=== PATIENT | male | born 1970 ===

== ENCOUNTER 2020-05-05 03:16 | Inpatient (IN) | payer OTHER ==
[2020-05-05 04:58] VITALS: BMI 31.3
[2020-05-05] MEDS ORDERED: Ondansetron ODT 4 MG TAB PO PRN (05:09)
[2020-05-05] MEDS ORDERED: Guaifenesin DM 100-10/5 ML UDCUP PO PRN (05:09)
[2020-05-05] MEDS ORDERED: Acetaminophen 650 MG Suppository PR PRN (05:09)
[2020-05-05] MEDS ORDERED: Ondansetron PF 4 MG/2 ML Vial IVP PRN (05:09)
[2020-05-05] MEDS ORDERED: HYDROcodone/Acetaminophen 5/325 mg Tablet PO PRN ×2 (05:09)
--- NOTE | 2020-05-05 05:30 | PDOC.HHP ---
Hospitalist HPI - History of Present Illness fever chills difficulty speaking History of Present Illness: Case of an 49 y/o male with pmhx of htn who is a [employer] inmate, that comes transfered from [place] [facility] due to sepsis pneumonia covid and slur speech. patient refers he was on his usual state of health until 3 days ago when he started with fever chills generalise weakness malaise dyspnea and difficulty pronouncing words. he was taken to [place] [facility] where he was dx with covid and pneumonia, had a negative head CT and was sent back to [facility] with azithromycin PO. patient continued to deteriorate for which he was again was taken to [facility] ED who found the patient on severe sepsis with renal failure and was sent to this institution for further evaluation and management. Hospitalist ROS - Review of Systems All other systems reviewed; all pertinent +/- noted in HPI/Subj Hospitalist History - Past Medical History Cardiac: reports: HTN - Past Surgical History Past Surgical History: reports: no pertinent history - Family History Family History: reports: no pertinent history - Social History Smoking Status: Former smoker Alcohol: reports: None Drugs: reports: none Activity level: independent ambulation - Exam General Appearance: NAD, awake alert Eye: PERRL, anicteric sclera ENT: normocephalic atraumatic, no oropharyngeal lesions Neck: supple, symmetric, no JVD, no thyromegaly Heart: RRR, no murmur, no gallops Respiratory: CTAB, no wheezes, no rales, tachypneic Gastrointestinal: soft, non-tender, non-distended Extremities: no cyanosis, no clubbing, no edema Skin: normal turgor, no lesions, no rashes Neurological: cranial nerve grossly intact, normal sensation to touch, no weakness Musculoskeletal: normal tone, normal strength Psychiatric: normal affect, normal behavior, A&O x 3 Hospitalist Results - Radiology Interpretation Chest x-ray Status: report reviewed by me Additional Comment: ANGELIA pneumonia Hospitalist H&P A/P - Problem (1) Severe sepsis Code(s): A41.9 - SEPSIS, UNSPECIFIED ORGANISM; R65.20 - SEVERE SEPSIS WITHOUT SEPTIC SHOCK Status: Acute (2) Pneumonia Code(s): J18.9 - PNEUMONIA, UNSPECIFIED ORGANISM Status: Acute (3) Renal failure Status: Acute (4) TIA (transient ischemic attack) Code(s): G45.9 - TRANSIENT CEREBRAL ISCHEMIC ATTACK, UNSPECIFIED Status: Acute (5) HTN (hypertension) Code(s): I10 - ESSENTIAL (PRIMARY) HYPERTENSION Status: Acute (6) Hyponatremia Code(s): E87.1 - HYPO-OSMOLALITY AND HYPONATREMIA Status: Acute - Plan Plan: severe sepsis / pnuemonia - elevated wbc 13k with tachycardia and fever, with a cxr with LLL pneumonia and renal failure - on rocephin and azithromycin - f/u blood cultures and sputum cultures. abx started before transfer, ours cultures will have a lower sensitivity - LA 1.2 - ivfs given covid 19+ - tested positive - isolation protocol started - dexamethasone 6mg iv daily renal failure - labs from two occasions from [facility] seen. from 1.2 to 3 creatinine - likely pre renal - will get renal u/s - u/a to examined sedimentation - ivfs 1x kg - f/u bmp hyponatremia - likely hypoosmolar hypovolemic - started on ivfs - initial evaluation at [facility] 127 improved w hydration to 131 -f/u bmps htn - holding hnt medication in the setting of sepsis and renal failure tia -pts refers slur speach and difficulty speaking words - head ct negative - started on secondary prevention w statin and asa - f/u mri carotid doppler and 2d echo - evaluation on modifiable risk factors with lipid panel and a1c
[2020-05-05] MEDS ORDERED: cefTRIAXone\\ROCEPHIN 1 GM in Sodium Chloride 0.9% 100 ML IVPB SCH (06:00)
[2020-05-05] MEDS: Sodium Chloride 0.9% 1,000 ML IV SCH ×2 (06:12→20:39)
[2020-05-05] MEDS ORDERED: Azithromycin 500 MG in Sodium Chloride 0.9% 250 ML 250 ML IVPB SCH (06:30)
[2020-05-05] MEDS: Dexamethasone 4 mg/ml Vial SLOW IVP SCH (08:45)
[2020-05-05] MEDS: Enoxaparin Sodium 30 MG/0.3 ML SYRINGE SC SCH (08:45)
[2020-05-05] MEDS: Aspirin 81 mg Enteric Coated Tablet PO SCH (08:45)
--- NOTE | 2020-05-05 08:57 | CT ---
PRELIMINARY REPORT/[facility]/EMERGENCY AFTER HOURS PROCEDURE EXAM: CT Head Without Intravenous Contrast. CLINICAL HISTORY: AMS TECHNIQUE: Axial computed tomography images of the head/brain without intravenous contrast. COMPARISON: None provided. FINDINGS: BRAIN: No acute intraparenchymal hemorrhage. No mass lesion. No CT evidence for acute territorial infarct. N o midline shift or extra-axial collection. VENTRICLES: No hydrocephalus. ORBITS: The orbits are unremarkable. SINUSES AND MASTOIDS: The paranasal sinuses and mastoid air cells are clear. SOFT TISSUES: No significant facial or scalp soft tissue swelling evident. No radiopaque foreign body is seen. BONES: No acute skull fracture. IMPRESSION: No acute intracranial abnormality. ELECTRONICALLY SIGNED BY: Ashley Nogueira MD May 05, 2020 4:49:26 AM CDT This report is intended for review by the ordering physician only, in accordance of law. If you recei ve this report in error, please call [facility] at [phone]. FINAL REPORT EMERGENT AFTER HOURS CT BRAIN: IMPRESSION: Agree with the preliminary interpretation. No evidence for intracranial hemorrhage or mass effect. POS: PRISCILLA
--- NOTE | 2020-05-05 12:20 | CON ---
NEUROLOGY CONSULTATION DATE OF CONSULTATION: 05/05/2020 REASON FOR CONSULTATION: Problem with speech, rule out CVA. HISTORY OF PRESENT ILLNESS: Mr. Maria Del Carmen Cancino is a 49-year-old male with medical history significant for hypertension and nicotine abuse, who was transferred from [facility] due to COVID pneumonia and slurred speech. Per the patient, the patient is a retirement inmate and he was in usual health 3 days ago when he started having fever, chills, generalized weakness, and difficulty talking. He was taken to the [facility] and was diagnosed with COVID pneumonia, and chest x-ray was done, which was negative, but then he continued to have problems with speech and transferred here for further evaluation. The patient denies any focal weakness, focal paresthesias, nausea, vomiting, headache, chest pain, abdominal pain, loss of vision, loss of consciousness,vertigo associated with speech issues. REVIEW OF SYSTEMS: All 14 systems were reviewed and were negative except the pertinent positives and negatives mentioned in the HPI. PAST MEDICAL HISTORY: Hypertension. PAST SURGICAL HISTORY: None. FAMILY HISTORY: No family history of stroke. SOCIAL HISTORY: He is a former smoker. He denies alcohol or illegal drug use. - Objective Vital Signs & Weight: Vital Signs (12 hours) Temp Pulse Resp BP Pulse Ox 05/05/20 08:00 96 05/05/20 03:45 98.0 F 82 25 H 163/106 H 97 Weight Weight 212 lb 3.2 oz Active Medications Generic Name Dose Route Start Last Admin Trade Name Freq PRN Reason Stop Dose Admin Aspirin 162 mg 05/05/20 09:00 05/05/20 08:45 Ecotrin PO 162 mg DAILY IWONA Administration Dexamethasone 6 mg 05/05/20 09:00 05/05/20 08:45 Decadron SLOW IVP 6 mg DAILY IWONA Administration Enoxaparin Sodium 30 mg 05/05/20 09:00 05/05/20 08:45 Lovenox SC 30 mg 0900 IWONA Administration Azithromycin 500 mg/ Sodium 250 mls @ 250 mls/hr 05/05/20 06:30 05/05/20 08: 45 Chloride IVPB 250 mls 0630 IWONA Administration Ceftriaxone Sodium 1 gm/ 100 mls @ 200 mls/hr 05/05/20 06:00 05/05/20 06:12 Sodium Chloride IVPB 100 mls 0600 IWONA Administration Sodium Chloride 1,000 mls @ 100 mls/hr 05/05/20 05:15 05/05/20 06:12 Normal Saline 0.9% IV 1,000 mls .Q10H IWONA Administration PHYSICAL EXAMINATION: CVS: Regular rate and rhythm. CHEST: Clear. ABDOMEN: Soft. NECK: No carotid bruit. NEUROLOGIC: Mental status; the patient is alert and oriented to person, place, and time. Speech is slurred. Follows commands appropriately. Motor; muscle tone and bulk are normal. Moving all 4 extremities equally and symmetrically. Sensory intact. Cerebellar; finger-nose testing intact Gait deferred due to the patient's safety reasons. Cranial nerves 2 through 12 intact except 10th, dysarthria. LABORATORY DATA: Data reviewed. I reviewed the CT and the chest x-ray, which were unremarkable. ASSESSMENT AND PLAN: Mr. Maria Del Carmen Cancino is a 49-year-old male, who was consulted for an episode of slurred speech to rule out stroke. He does have severe sepsis and COVID pneumonia. I recommend MRI of the brain to rule out acute intracranial pathology, 2D echo to rule out cardioembolic source, telemetry to rule out arrhythmias. Continue aspirin and statin for secondary stroke prevention. Continue home medications. Continue medical management of COVID pneumonia per primary team. Continue medical management per primary team for other issues. Further recommendations depend on the neuro checks every 4 hours. PT/OT/speech. Further recommendations depend on the results of the testing. We will continue to follow. Thank you for the consult. Job ID: [id number] MTDD
--- NOTE | 2020-05-05 12:24 | PDOC.HOSPP ---
- Subjective Encounter Date: 05/05/20 Encounter Time: 09:40 Subjective: pt being seen this am by admitting physician. I have reviewed the meds, labs etc..a nd did not see the pt. - Objective Vital Signs & Weight: Vital Signs (12 hours) Temp Pulse Resp BP Pulse Ox 05/05/20 08:00 96 05/05/20 03:45 98.0 F 82 25 H 163/106 H 97 Weight Weight 212 lb 3.2 oz Hospitalist ROS - Medication Medications: Active Medications Generic Name Dose Route Start Last Admin Trade Name Freq PRN Reason Stop Dose Admin Aspirin 162 mg 05/05/20 09:00 05/05/20 08:45 Ecotrin PO 162 mg DAILY IWONA Administration Dexamethasone 6 mg 05/05/20 09:00 05/05/20 08:45 Decadron SLOW IVP 6 mg DAILY IWONA Administration Enoxaparin Sodium 30 mg 05/05/20 09:00 05/05/20 08:45 Lovenox SC 30 mg 0900 IWONA Administration Azithromycin 500 mg/ Sodium 250 mls @ 250 mls/hr 05/05/20 06:30 05/05/20 08: 45 Chloride IVPB 250 mls 0630 IWONA Administration Ceftriaxone Sodium 1 gm/ 100 mls @ 200 mls/hr 05/05/20 06:00 05/05/20 06:12 Sodium Chloride IVPB 100 mls 0600 IWONA Administration Sodium Chloride 1,000 mls @ 100 mls/hr 05/05/20 05:15 05/05/20 06:12 Normal Saline 0.9% IV 1,000 mls .Q10H IWONA Administration Hosp A/P - Plan note edited to reflect today's plan Severe sepsis Code(s): A41.9 - SEPSIS, UNSPECIFIED ORGANISM; R65.20 - SEVERE SEPSIS WITHOUT SEPTIC SHOCK Status: Acute (2) Pneumonia Code(s): J18.9 - PNEUMONIA, UNSPECIFIED ORGANISM Status: Acute (3) Renal failure Status: Acute (4) TIA (transient ischemic attack) Code(s): G45.9 - TRANSIENT CEREBRAL ISCHEMIC ATTACK, UNSPECIFIED Status: Acute (5) HTN (hypertension) Code(s): I10 - ESSENTIAL (PRIMARY) HYPERTENSION Status: Acute (6) Hyponatremia Code(s): E87.1 - HYPO-OSMOLALITY AND HYPONATREMIA Status: Acute - Plan Plan: severe sepsis / pnuemonia - on rocephin and azithromycin - f/u blood cultures and sputum cultures. - covid 19+ - tested positive - isolation protocol started - dexamethasone 6mg iv daily renal failure - labs from two occasions from [facility] seen. from 1.2 to 3 creatinine - likely pre renal - will get renal u/s - u/a to examined sedimentation - ivfs 1x kg - f/u bmp hyponatremia - likely hypoosmolar hypovolemic - started on ivfs - initial evaluation at [facility] 127 improved w hydration to 131 -f/u bmps htn - holding hnt medication in the setting of sepsis and renal failure tia -pts refers slur speach and difficulty speaking words - head ct negative - started on secondary prevention w statin and asa - f/u mri carotid doppler and 2d echo - evaluation on modifiable risk factors with lipid panel and a1c pt being seen this am by admitting physician. I have reviewed the meds, labs etc..a nd did not see the pt.
[2020-05-05 12:47] LABS: Bacteria/HPF None Seen HPF (None Seen); Bilirubin Negative (Negative); Blood, Urine 2+ (Negative); Clarity Turbid (Clear); Glucose, Urine (Dipstick) Normal (Negative); Ketone, Urine Trace mg/dL (Negative); Leukocyte Negative Leu/uL (Negative); Nitrite Negative (Negative); Protein, Urine (Dipstick) 100 mg/dL (Neg-Trace); RBC/HPF 0-3 HPF (0-3); Specific Gravity, Urine 1.023 (1.002-1.036); Squamous Epithelial 0-3 HPF (0-3); Urobilinogen Normal mg/dL (Less than 2)
[2020-05-05 12:49] LABS: Urine Culture Reflex Yes Yes
[2020-05-05] MEDS: Atorvastatin Calcium 40 MG TAB PO SCH (20:39)
[2020-05-05] MEDS: Acetaminophen 325 MG TAB PO PRN (20:48)
[2020-05-06 04:50] LABS: Hemoglobin A1c 4.9 % (4.0-6.0)
[2020-05-06 05:08] LABS: ALT (SGPT) 103 U/L (8-55); AST (SGOT) 192 U/L (5-34); Albumin 3.4 g/dL (3.5-5.0); Alkaline Phosphatase 46 U/L (40-110); Anion Gap 12 mmol/L (10-20); BUN (Urea Nitrogen) 34 mg/dL (8.9-20.6); Bilirubin, Total 1.3 mg/dL (0.2-1.2); Calc. Creatinine Clearance 79 mL/min (70-130); Calcium 8.4 mg/dL (7.8-10.44); Carbon Dioxide 24 mmol/L (22-29); Cardiac Risk 5.9 (Less than 4.5); Chloride 105 mmol/L (98-107); Cholesterol 130 mg/dl (< 200 Desired); Estimated GFR-MDRD 49; Globulin 3.3 g/dL (2.4-3.5); Glucose 141 mg/dL (70-105); HDL Cholesterol 22 mg/dL (>60 Neg Risk); LDL Cholesterol, Calculated 76 mg/dL; Potassium 4.1 mmol/L (3.5-5.1); Protein, Total 6.7 g/dL (6.0-8.3); Sodium 137 mmol/L (136-145); Triglycerides 161 mg/dL (Less than 150)
[2020-05-06 05:13] LABS: Band 22 % (5-11); Eosinophils 1 % (0-10); Lymphocytes 6 % (21-51); MDiff Complete? YES; Mean Corpuscular Hemoglobin 30.4 pg (27.0-31.0); Mean Corpuscular Volume 95.2 fL (78.0-98.0); Mean Platelet Volume 9.2 fL (7.4-10.4); Monocytes 9 % (0-10); Neutrophil 62 % (42-75); Platelet Count 178 thou/uL (130-400); Platelet Morphology Comment Appears Adequate; Red Blood Cell (RBC) Count 3.61 mill/uL (4.70-6.10); White Blood Cell (WBC) Count 11.4 thou/uL (4.8-10.8)
[2020-05-06] MEDS: Sodium Chloride 0.9% 1,000 ML IV SCH ×2 (05:57→15:37)
[2020-05-06] MEDS: Aspirin 81 mg Enteric Coated Tablet PO SCH (08:02)
[2020-05-06] MEDS: Dexamethasone 4 mg/ml Vial SLOW IVP SCH (08:03)
[2020-05-06] MEDS: Enoxaparin Sodium 30 MG/0.3 ML SYRINGE SC SCH (08:06)
[2020-05-06] MEDS ORDERED: cefTRIAXone\\ROCEPHIN 1 GM in Sodium Chloride 0.9% 100 ML IVPB SCH (09:00)
[2020-05-06] MEDS ORDERED: Azithromycin 500 MG in Sodium Chloride 0.9% 250 ML 250 ML IVPB SCH (09:00)
[2020-05-06 11:02] LABS: Hemoglobin 11.5 g/dL (14.0-18.0); Mean Corpuscular HGB CONC 33.9 g/dL (32.0-36.0); Mean Corpuscular Hemoglobin 32.3 pg (27.0-31.0); Mean Corpuscular Volume 95.2 fL (78.0-98.0); Mean Platelet Volume 9.1 fL (7.4-10.4); Platelet Count 178 thou/uL (130-400); Red Blood Cell (RBC) Count 3.56 mill/uL (4.70-6.10); White Blood Cell (WBC) Count 12.3 thou/uL (4.8-10.8)
[2020-05-06 11:18] LABS: ALT (SGPT) 106 U/L (8-55); AST (SGOT) 182 U/L (5-34); Albumin 3.4 g/dL (3.5-5.0); Alkaline Phosphatase 52 U/L (40-110); Anion Gap 11 mmol/L (10-20); BUN (Urea Nitrogen) 33 mg/dL (8.9-20.6); Bilirubin, Total 1.2 mg/dL (0.2-1.2); Calc. Creatinine Clearance 88 mL/min (70-130); Calcium 8.6 mg/dL (7.8-10.44); Carbon Dioxide 24 mmol/L (22-29); Chloride 106 mmol/L (98-107); Estimated GFR-MDRD 55; Globulin 3.2 g/dL (2.4-3.5); Glucose 158 mg/dL (70-105); Protein, Total 6.6 g/dL (6.0-8.3); Sodium 137 mmol/L (136-145)
--- NOTE | 2020-05-06 17:06 | PDOC.HOSPP ---
- Subjective Encounter Date: 05/06/20 Encounter Time: 15:00 Subjective: The patient states he feels okay. He has decreased appetite still, not eating his full meals. He has mild dry cough, no chest pain. He got up with PT today He seems slightly cognitively slow. NIH stroke scale one per nurse for dysarthria - Objective Vital Signs & Weight: Vital Signs (12 hours) Temp Pulse Resp BP BP Pulse Ox 05/06/20 16:00 97.7 F 73 24 H 152/98 H 94 L 05/06/20 11:00 98.4 F 68 26 H 141/100 H 94 L 05/06/20 08:00 98.2 F 86 16 136/95 H 94 L Weight Weight 212 lb 3.2 oz I&O: 05/05/20 05/06/20 05/07/20 06:59 06:59 06:59 Intake Total 2400 480 Balance 2400 480 Result Diagrams: 05/06/20 10:40 05/06/20 10:40 Hospitalist ROS - Review of Systems Constitutional: reports: chills (had it previously). denies: fever - Medication Medications: Active Medications Generic Name Dose Route Start Last Admin Trade Name Freq PRN Reason Stop Dose Admin Acetaminophen 650 mg 05/05/20 05:09 05/05/20 20:48 Tylenol PO 650 mg Q4H PRN Administration Headache/Fever/Mild Pain (1-3) Aspirin 162 mg 05/05/20 09:00 05/06/20 08:02 Ecotrin PO 162 mg DAILY IWONA Administration Atorvastatin Calcium 40 mg 05/05/20 21:00 05/05/20 20:39 Lipitor PO 40 mg HS IWONA Administration Enoxaparin Sodium 30 mg 05/05/20 09:00 05/06/20 08:06 Lovenox SC 30 mg 0900 IWONA Administration - Exam General Appearance: NAD, awake alert Eye: PERRL, anicteric sclera ENT: normocephalic atraumatic, no oropharyngeal lesions Neck: no JVD Heart: RRR, no murmur, no gallops, no rubs Respiratory: CTAB, no wheezes, no rales, no ronchi Gastrointestinal: soft, non-tender, non-distended, normal bowel sounds Extremities: no cyanosis, no clubbing, no edema Skin: normal turgor, no lesions, no rashes Hosp A/P - Plan CT brain: normal This is 49 year old male who presented with fevers, chills, weakness, tested positive for COVID COVID + - on ceftriaxone and azithromycin. Will switch to oral - on dexamethasone. Switch to oral - he is on room air - will transfer to [facility] bed #Dysarthria #Acute encephalopathy - no focal deficits. CT head normal - will cancel rest of stroke workup since COVID positive - continue PT/OT/speech - UA 4-6 WBC, pending urine culture - check chest X ray Transaminitis - AST 182, ALT elevated. Will continue to trend Possible YOLANDA - creatinine improved to 1.37, will continue to monitor. Unknown what patient' s baseline is - encourage oral intake Dispo: possible d/c to [facility] bed when available
--- NOTE | 2020-05-06 19:10 | RAD ---
EXAM: CHEST ONE VIEW HISTORY: Covid positive COMPARISON: None FINDINGS: The cardiac silhouette and pulmonary vasculature is within normal limits. There is elevation of the r ight hemidiaphragm with minimal atelectasis right lung base. The medial left lung base is obscured due to cardiac silhouette and technique of the exam. Parenchymal opacity left lung base would be diff icult to entirely exclude. No consolidation is seen throughout the remainder of the lungs. Calcified granuloma is seen in the left midlung zone. The osseous structures are intact. IMPRESSION: 1 Limited evaluation retrocardiac region left lung base. There is otherwise no consolidation seen wit hin the lungs. 2. Elevation right hemidiaphragm with atelectasis right lung base. 3. Chest radiographs exhibit low sensitivity for subtle groundglass opacities which can be seen with viral pneumonitis.
[2020-05-06] MEDS: Cefdinir 300 MG CAP PO SCH (19:39)
[2020-05-06] MEDS: Atorvastatin Calcium 40 MG TAB PO SCH (19:39)
[2020-05-06] MEDS: Artificial Tear Sol 15 ML BOT EA EYE PRN (23:03)
[2020-05-07] MEDS: Azithromycin 250 MG TAB PO SCH (09:24)
[2020-05-07] MEDS: Enoxaparin Sodium 30 MG/0.3 ML SYRINGE SC SCH (09:24)
[2020-05-07] MEDS: Dexamethasone 4 MG TAB PO SCH (09:24)
[2020-05-07] MEDS: Cefdinir 300 MG CAP PO SCH ×2 (09:24→19:40)
[2020-05-07] MEDS: Aspirin 81 mg Enteric Coated Tablet PO SCH (09:24)
--- NOTE | 2020-05-07 15:29 | PDOC.HOSPP ---
- Subjective Encounter Date: 05/07/20 Encounter Time: 13:00 Subjective: The patient is sitting up in bed. He is not eating much food. States he prefers to drink water instead. He denies loss of smell or taste. He has not ambulated much Awaiting [facility] bed - Objective Vital Signs & Weight: Vital Signs (12 hours) Temp Pulse Resp BP Pulse Ox 05/07/20 12:00 98.9 F 70 28 H 155/96 H 95 05/07/20 09:00 98.5 F 81 20 170/105 H 93 L 05/07/20 08:30 93 L 05/07/20 05:34 98.6 F 73 22 H 154/100 H 92 L Weight Weight 212 lb 3.2 oz I&O: 05/06/20 05/07/20 05/08/20 06:59 06:59 06:59 Intake Total 2400 480 Balance 2400 480 Result Diagrams: 05/06/20 10:40 05/06/20 10:40 Hospitalist ROS - Review of Systems Constitutional: denies: fever, chills - Medication Medications: Active Medications Generic Name Dose Route Start Last Admin Trade Name Freq PRN Reason Stop Dose Admin Acetaminophen 650 mg 05/05/20 05:09 05/05/20 20:48 Tylenol PO 650 mg Q4H PRN Administration Headache/Fever/Mild Pain (1-3) Artificial Tears 2 drop 05/06/20 21:44 05/06/20 23:03 Liquitears 15ml Bottle EA EYE 2 drop Q4H PRN Administration Dry Eyes Aspirin 162 mg 05/05/20 09:00 05/07/20 09:24 Ecotrin PO 162 mg DAILY IWONA Administration Atorvastatin Calcium 40 mg 05/05/20 21:00 05/06/20 19:39 Lipitor PO 40 mg HS IWONA Administration Azithromycin 250 mg 05/07/20 09:00 05/07/20 09:24 Zithromax PO 05/10/20 09:01 250 mg DAILY IWONA Administration Cefdinir 300 mg 05/06/20 21:00 05/07/20 09:24 Omnicef PO 300 mg BID IWONA Administration Dexamethasone 6 mg 05/07/20 09:00 05/07/20 09:24 Decadron PO 6 mg DAILY IWONA Administration Enoxaparin Sodium 30 mg 05/05/20 09:00 05/07/20 09:24 Lovenox SC 30 mg 0900 IWONA Administration Sodium Chloride 10 ml 05/05/20 05:09 05/06/20 19:39 Flush - Normal Saline IVF 10 ml PRN PRN Administration Saline Flush - Exam General Appearance: NAD, awake alert Eye: PERRL, anicteric sclera ENT: normocephalic atraumatic, no oropharyngeal lesions Neck: no JVD Heart: RRR, no murmur, no gallops, no rubs Respiratory: CTAB, no wheezes, no rales, no ronchi Gastrointestinal: soft, non-tender, non-distended, normal bowel sounds Extremities: no cyanosis, no clubbing, no edema Skin: normal turgor, no lesions, no rashes Neurological: cranial nerve grossly intact, normal sensation to touch, no weakness, no focal deficits, no new deficit Musculoskeletal: normal tone, normal strength, no muscle wasting Psychiatric: normal affect, normal behavior, A&O x 3, oriented to person Hosp A/P - Plan CT brain: normal This is 49 year old male who presented with fevers, chills, weakness, tested positive for COVID COVID + - on ceftriaxone and azithromycin. Switched to oral cefdinir and azithromycin . Recheck WBC - continue oral dexamethasone - he is on room air. ChestX ray unremarkable - will transfer to [facility] #Dysarthria #Acute encephalopathy - improving - no focal deficits. CT head normal. HE does have some mild cognitive impairment - rest of stroke workup not done since COVID positive - continue PT/OT/speech - UA 4-6 WBC, pending urine culture Transaminitis - AST 182, ALT elevated. Will continue to trend Possible YOLANDA - creatinine improved to 1.37 yesterday. Will repeat BMP today Dispo: possible d/c to [facility] when available
[2020-05-07 16:17] LABS: Hemoglobin 11.1 g/dL (14.0-18.0); Mean Corpuscular HGB CONC 33.3 g/dL (32.0-36.0); Mean Corpuscular Hemoglobin 31.8 pg (27.0-31.0); Mean Corpuscular Volume 95.5 fL (78.0-98.0); Mean Platelet Volume 8.8 fL (7.4-10.4); Platelet Count 223 thou/uL (130-400); RBC Distribution Width 11.9 % (11.5-14.5); Red Blood Cell (RBC) Count 3.48 mill/uL (4.70-6.10); White Blood Cell (WBC) Count 14.8 thou/uL (4.8-10.8)
[2020-05-07 16:39] LABS: Anion Gap 14 mmol/L (10-20); BUN (Urea Nitrogen) 33 mg/dL (8.9-20.6); Calc. Creatinine Clearance 98 mL/min (70-130); Calcium 8.7 mg/dL (7.8-10.44); Carbon Dioxide 23 mmol/L (22-29); Chloride 105 mmol/L (98-107); Estimated GFR-MDRD 62; Glucose 141 mg/dL (70-105); Potassium 3.8 mmol/L (3.5-5.1); Sodium 138 mmol/L (136-145)
[2020-05-07] MEDS: Atorvastatin Calcium 40 MG TAB PO SCH (19:40)
[2020-05-07] MEDS: hydrALAZINE 20 MG/ML VIAL SLOW IVP PRN (23:04)
[2020-05-07] MEDS: Acetaminophen 325 MG TAB PO PRN (23:38)
[2020-05-08] MEDS: hydrALAZINE 20 MG/ML VIAL SLOW IVP PRN (04:28)
[2020-05-08] MEDS: Acetaminophen 325 MG TAB PO PRN ×3 (04:29→20:38)
[2020-05-08 05:09] LABS: Hemoglobin 11.3 g/dL (14.0-18.0); Mean Corpuscular HGB CONC 32.5 g/dL (32.0-36.0); Mean Corpuscular Hemoglobin 31.3 pg (27.0-31.0); Mean Corpuscular Volume 96.5 fL (78.0-98.0); Mean Platelet Volume 8.6 fL (7.4-10.4); Platelet Count 256 thou/uL (130-400); Red Blood Cell (RBC) Count 3.62 mill/uL (4.70-6.10); White Blood Cell (WBC) Count 16.1 thou/uL (4.8-10.8)
[2020-05-08 05:36] LABS: Anion Gap 17 mmol/L (10-20); BUN (Urea Nitrogen) 28 mg/dL (8.9-20.6); Calc. Creatinine Clearance 100 mL/min (70-130); Calcium 8.9 mg/dL (7.8-10.44); Carbon Dioxide 19 mmol/L (22-29); Chloride 105 mmol/L (98-107); Estimated GFR-MDRD 64; Glucose 94 mg/dL (70-105); Potassium 3.9 mmol/L (3.5-5.1); Sodium 137 mmol/L (136-145)
[2020-05-08] MEDS ORDERED: Ibuprofen 600 MG TAB PO SCH (05:52)
[2020-05-08] MEDS: Dexamethasone 4 MG TAB PO SCH (08:00)
[2020-05-08] MEDS: Cefdinir 300 MG CAP PO SCH ×2 (08:00→20:23)
[2020-05-08] MEDS: Azithromycin 250 MG TAB PO SCH (08:00)
[2020-05-08] MEDS: Enoxaparin Sodium 30 MG/0.3 ML SYRINGE SC SCH (08:01)
[2020-05-08] MEDS: Aspirin 81 mg Enteric Coated Tablet PO SCH (08:01)
[2020-05-08] MEDS ORDERED: Amlodipine 5 MG TAB PO SCH (09:45)
--- NOTE | 2020-05-08 12:22 | RAD ---
EXAM: CHEST ONE VIEW HISTORY: Fever, Covid positive. COMPARISON: 05/06/2020 FINDINGS: Cardiac silhouette is magnified by projection. Again, there is suboptimal evaluation retrocardiac reg ion left lung base. Persistent elevation right hemidiaphragm with minimal volume loss right lung base is seen. Chest is overall stable compared to prior exam. IMPRESSION: Again, there is suboptimal evaluation of the left lung base. Chest is otherwise stable, and no defini tive opacities are seen within the lungs. However, chest radiographs exhibit low sensitivity for subtle groundglass opacities which can be seen with viral pneumonitis.
--- NOTE | 2020-05-08 15:00 | PDOC.HOSPP ---
- Subjective Encounter Date: 05/08/20 Encounter Time: 05:00 Subjective: THe patient had a fever this morning to 100.3. He denies chest pain/SOB/ cough. THe patient tried to eat more today, but did not like his eggs but he did eat the chocolate pudding - Objective Vital Signs & Weight: Vital Signs (12 hours) Temp Pulse Resp BP BP Pulse Ox 05/08/20 12:00 98.8 F 72 18 156/89 H 94 L 05/08/20 08:00 98.3 F 90 22 H 137/88 93 L 05/08/20 05:47 101.3 F H 05/08/20 04:28 97 05/08/20 04:19 103.1 F H 97 27 H 174/108 H 97 Weight Weight 212 lb 3.2 oz I&O: 05/07/20 05/08/20 05/09/20 06:59 06:59 06:59 Intake Total 480 Balance 480 Result Diagrams: 05/08/20 05:00 05/08/20 05:00 Hospitalist ROS - Review of Systems Constitutional: denies: fever, chills - Medication Medications: Active Medications Generic Name Dose Route Start Last Admin Trade Name Freq PRN Reason Stop Dose Admin Acetaminophen 650 mg 05/05/20 05:09 05/08/20 04:29 Tylenol PO 650 mg Q4H PRN Administration Headache/Fever/Mild Pain (1-3) Artificial Tears 2 drop 05/06/20 21:44 05/06/20 23:03 Liquitears 15ml Bottle EA EYE 2 drop Q4H PRN Administration Dry Eyes Aspirin 162 mg 05/05/20 09:00 05/08/20 08:01 Ecotrin PO 162 mg DAILY IWONA Administration Atorvastatin Calcium 40 mg 05/05/20 21:00 05/07/20 19:40 Lipitor PO 40 mg HS IWONA Administration Azithromycin 250 mg 05/07/20 09:00 05/08/20 08:00 Zithromax PO 05/10/20 09:01 250 mg DAILY IWONA Administration Cefdinir 300 mg 05/06/20 21:00 05/08/20 08:00 Omnicef PO 300 mg BID IWONA Administration Dexamethasone 6 mg 05/07/20 09:00 05/08/20 08:00 Decadron PO 6 mg DAILY IWONA Administration Enoxaparin Sodium 30 mg 05/05/20 09:00 05/08/20 08:01 Lovenox SC 30 mg 0900 IWONA Administration Hydralazine HCl 10 mg 05/07/20 22:52 05/08/20 04:28 Apresoline SLOW IVP 10 mg Q4H PRN Administration SBP > 180 or DBP > 105 Sodium Chloride 10 ml 05/05/20 05:09 05/07/20 19:40 Flush - Normal Saline IVF 10 ml PRN PRN Administration Saline Flush - Exam General Appearance: NAD, awake alert Eye: PERRL, anicteric sclera ENT: normocephalic atraumatic, no oropharyngeal lesions Neck: no JVD Heart: RRR, no murmur, no gallops, no rubs Respiratory: CTAB, no wheezes, no rales, no ronchi Gastrointestinal: soft, non-tender, non-distended, normal bowel sounds, no hepatomegaly Extremities: no cyanosis, no clubbing, no edema Skin: normal turgor, no lesions, no rashes Hosp A/P - Plan CT brain: normal This is 49 year old male who presented with fevers, chills, weakness, tested positive for COVID COVID + - on ceftriaxone and azithromycin. Switched to oral cefdinir and azithromycin . Had mild temp 100.3. WBC up to 16. Repeat chest Xray shows no worsening - continue oral dexamethasone day 2 - pending [facility] bed #Dysarthria #Acute encephalopathy - improving - no focal deficits. CT head normal. HE does have some mild cognitive impairment - rest of stroke workup not done since COVID positive - continue PT/OT/speech - UA 4-6 WBC, pending urine culture Transaminitis - AST 182, ALT elevated. Will continue to trend YOLANDA - resolved Dispo: possible d/c to [facility] bed when available
[2020-05-08] MEDS: Atorvastatin Calcium 40 MG TAB PO SCH (20:23)
[2020-05-09] MEDS: Acetaminophen 325 MG TAB PO PRN ×4 (03:32→23:27)
[2020-05-09 05:12] LABS: Hemoglobin 10.6 g/dL (14.0-18.0); Mean Corpuscular HGB CONC 32.3 g/dL (32.0-36.0); Mean Corpuscular Volume 96.1 fL (78.0-98.0); Mean Platelet Volume 8.2 fL (7.4-10.4); Platelet Count 321 thou/uL (130-400); RBC Distribution Width 12.1 % (11.5-14.5); Red Blood Cell (RBC) Count 3.43 mill/uL (4.70-6.10); White Blood Cell (WBC) Count 14.2 thou/uL (4.8-10.8)
[2020-05-09 05:15] LABS: ALT (SGPT) 99 U/L (8-55); AST (SGOT) 95 U/L (5-34); Albumin 3.4 g/dL (3.5-5.0); Alkaline Phosphatase 53 U/L (40-110); Anion Gap 13 mmol/L (10-20); BUN (Urea Nitrogen) 22 mg/dL (8.9-20.6); Bilirubin, Direct 0.8 mg/dL (0.1-0.3); Bilirubin, Total 1.6 mg/dL (0.2-1.2); Calc. Creatinine Clearance 91 mL/min (70-130); Calcium 8.5 mg/dL (7.8-10.44); Carbon Dioxide 24 mmol/L (22-29); Chloride 103 mmol/L (98-107); Estimated GFR-MDRD 57; Glucose 115 mg/dL (70-105); Potassium 3.3 mmol/L (3.5-5.1); Protein, Total 6.6 g/dL (6.0-8.3); Sodium 137 mmol/L (136-145)
[2020-05-09] MEDS ORDERED: Potassium Chloride 20 MEQ TAB PO SCH (07:15)
[2020-05-09] MEDS: Amlodipine 5 MG TAB PO SCH (07:57)
[2020-05-09] MEDS: Enoxaparin Sodium 30 MG/0.3 ML SYRINGE SC SCH (07:57)
[2020-05-09] MEDS: Aspirin 81 mg Enteric Coated Tablet PO SCH (07:58)
[2020-05-09] MEDS: Azithromycin 250 MG TAB PO SCH (07:58)
[2020-05-09] MEDS: Cefdinir 300 MG CAP PO SCH (07:58)
[2020-05-09] MEDS: Dexamethasone 4 MG TAB PO SCH (07:59)
--- NOTE | 2020-05-09 15:41 | PDOC.HOSPP ---
- Subjective Encounter Date: 05/09/20 Encounter Time: 15:39 Subjective: THe patient has no complaints. He still does not feel like eating solid food . He drank some orange juice today. No cough or SOB - Objective Vital Signs & Weight: Vital Signs (12 hours) Temp Pulse Resp BP Pulse Ox 05/09/20 15:10 98.6 F 78 16 138/96 H 95 05/09/20 12:00 99.9 F H 89 18 151/97 H 94 L 05/09/20 08:20 97 05/09/20 08:00 102.2 F H 85 18 196/88 H 97 05/09/20 05:14 99.9 F H Weight Weight 212 lb 3.2 oz I&O: 05/08/20 05/09/20 05/10/20 06:59 06:59 06:59 Intake Total 250 Output Total 200 Balance 50 Result Diagrams: 05/09/20 04:35 05/09/20 04:35 Hospitalist ROS - Review of Systems Constitutional: denies: fever, chills - Medication Medications: Active Medications Generic Name Dose Route Start Last Admin Trade Name Freq PRN Reason Stop Dose Admin Acetaminophen 650 mg 05/05/20 05:09 05/09/20 11:50 Tylenol PO 650 mg Q4H PRN Administration Headache/Fever/Mild Pain (1-3) Amlodipine Besylate 5 mg 05/09/20 09:00 05/09/20 07:57 Norvasc PO 5 mg DAILY IWONA Administration Artificial Tears 2 drop 05/06/20 21:44 05/06/20 23:03 Liquitears 15ml Bottle EA EYE 2 drop Q4H PRN Administration Dry Eyes Aspirin 162 mg 05/05/20 09:00 05/09/20 07:58 Ecotrin PO 162 mg DAILY IWONA Administration Atorvastatin Calcium 40 mg 05/05/20 21:00 05/08/20 20:23 Lipitor PO 40 mg HS IWONA Administration Azithromycin 250 mg 05/07/20 09:00 05/09/20 07:58 Zithromax PO 05/10/20 09:01 250 mg DAILY IWONA Administration Cefdinir 300 mg 05/06/20 21:00 05/09/20 07:58 Omnicef PO 300 mg BID IWONA Administration Dexamethasone 6 mg 05/07/20 09:00 05/09/20 07:59 Decadron PO 6 mg DAILY IWONA Administration Enoxaparin Sodium 30 mg 05/05/20 09:00 05/09/20 07:57 Lovenox SC 30 mg 0900 IWONA Administration Hydralazine HCl 10 mg 05/07/20 22:52 05/08/20 04:28 Apresoline SLOW IVP 10 mg Q4H PRN Administration SBP > 180 or DBP > 105 Sodium Chloride 10 ml 05/05/20 05:09 05/07/20 19:40 Flush - Normal Saline IVF 10 ml PRN PRN Administration Saline Flush - Exam General Appearance: NAD, awake alert Eye: PERRL, anicteric sclera ENT: normocephalic atraumatic, no oropharyngeal lesions Neck: no JVD Heart: RRR, no murmur, no gallops, no rubs Respiratory: CTAB, no wheezes, no rales, no ronchi Gastrointestinal: soft, non-tender, non-distended, normal bowel sounds Extremities: no cyanosis, no clubbing, no edema Skin: normal turgor, no lesions, no rashes Neurological: cranial nerve grossly intact, normal sensation to touch, no focal deficits, no new deficit Hosp A/P - Plan CT brain: normal Chest X ray 05/08: no definite opacities seen within the lungs This is 49 year old male who presented with fevers, chills, weakness, tested positive for COVID COVID + - on ceftriaxone and azithromycin. Switched to oral cefdinir and azithromycin. He has completed five days of cefdinir, will discontinue. Continue azithromycin - continue oral dexamethasone day 3/5 - blood and urine culture normal - pending [facility] bed at [facility] #Dysarthria #Acute encephalopathy - improving - no focal deficits. CT head normal. HE does have some mild cognitive impairment - rest of stroke workup not done since COVID positive - continue PT/OT/speech - UA 4-6 WBC, urine culture shows no growth Transaminitis - LFTs downtrending, continue to monitor YOLANDA - resolved Dispo: pending [facility] bed at [facility]
[2020-05-09] MEDS: Atorvastatin Calcium 40 MG TAB PO SCH (20:21)
[2020-05-09] MEDS: hydrALAZINE 20 MG/ML VIAL SLOW IVP PRN (20:31)
[2020-05-10] MEDS ORDERED: Ibuprofen 800 MG TAB PO SCH (02:15)
[2020-05-10 08:08] LABS: Hemoglobin 11.2 g/dL (14.0-18.0); Mean Corpuscular HGB CONC 33.5 g/dL (32.0-36.0); Mean Corpuscular Hemoglobin 32.4 pg (27.0-31.0); Mean Corpuscular Volume 96.6 fL (78.0-98.0); Mean Platelet Volume 7.4 fL (7.4-10.4); Platelet Count 417 thou/uL (130-400); RBC Distribution Width 12.2 % (11.5-14.5); Red Blood Cell (RBC) Count 3.46 mill/uL (4.70-6.10); White Blood Cell (WBC) Count 14.5 thou/uL (4.8-10.8)
[2020-05-10 08:22] LABS: Anion Gap 12 mmol/L (10-20); BUN (Urea Nitrogen) 21 mg/dL (8.9-20.6); Calc. Creatinine Clearance 101 mL/min (70-130); Calcium 8.7 mg/dL (7.8-10.44); Carbon Dioxide 27 mmol/L (22-29); Chloride 101 mmol/L (98-107); Estimated GFR-MDRD 65; Glucose 118 mg/dL (70-105); Potassium 3.4 mmol/L (3.5-5.1); Sodium 137 mmol/L (136-145)
[2020-05-10] MEDS: Amlodipine 5 MG TAB PO SCH (10:03)
[2020-05-10] MEDS: Azithromycin 250 MG TAB PO SCH (10:03)
[2020-05-10] MEDS: Dexamethasone 4 MG TAB PO SCH (10:03)
[2020-05-10] MEDS: Aspirin 81 mg Enteric Coated Tablet PO SCH (10:03)
[2020-05-10] MEDS: Enoxaparin Sodium 30 MG/0.3 ML SYRINGE SC SCH (10:04)
--- NOTE | 2020-05-10 12:25 | PDOC.HOSPP ---
- Subjective Encounter Date: 05/10/20 Encounter Time: 12:25 Subjective: The patient is sitting up in bed, appears cheerful. He had no cough or shortness of breath. He hasn't eaten his breakfast yet, states that nobody has brought him food yet - Objective Vital Signs & Weight: Vital Signs (12 hours) Temp Pulse Resp BP Pulse Ox 05/10/20 10:05 99.2 F 85 22 H 140/95 H 98 05/10/20 10:03 0 L 05/10/20 03:57 99.1 F 30 H 148/87 H 94 L 05/10/20 02:24 101.1 F H 83 38 H 05/10/20 01:14 102.1 F H 97 36 H 95 Weight Weight 212 lb 3.2 oz I&O: 05/09/20 05/10/20 05/11/20 06:59 06:59 06:59 Intake Total 250 1200 Output Total 200 550 Balance 50 650 Result Diagrams: 05/10/20 07:46 05/10/20 07:46 Hospitalist ROS - Medication Medications: Active Medications Generic Name Dose Route Start Last Admin Trade Name Freq PRN Reason Stop Dose Admin Acetaminophen 650 mg 05/05/20 05:09 05/09/20 23:27 Tylenol PO 650 mg Q4H PRN Administration Headache/Fever/Mild Pain (1-3) Amlodipine Besylate 5 mg 05/09/20 09:00 05/10/20 10:03 Norvasc PO 5 mg DAILY IWONA Administration Artificial Tears 2 drop 05/06/20 21:44 05/06/20 23:03 Liquitears 15ml Bottle EA EYE 2 drop Q4H PRN Administration Dry Eyes Aspirin 162 mg 05/05/20 09:00 05/10/20 10:03 Ecotrin PO 162 mg DAILY IWONA Administration Atorvastatin Calcium 40 mg 05/05/20 21:00 05/09/20 20:21 Lipitor PO 40 mg HS IWONA Administration Dexamethasone 6 mg 05/07/20 09:00 05/10/20 10:03 Decadron PO 6 mg DAILY IWONA Administration Enoxaparin Sodium 30 mg 05/05/20 09:00 05/10/20 10:04 Lovenox SC 30 mg 0900 IWONA Administration Guaifenesin/Dextromethorphan 15 ml 05/05/20 05:09 05/09/20 20:33 Robitussin Dm PO 15 ml Q4H PRN Administration Cough Hydralazine HCl 10 mg 05/07/20 22:52 05/09/20 20:31 Apresoline SLOW IVP 10 mg Q4H PRN Administration SBP > 180 or DBP > 105 Sodium Chloride 10 ml 05/05/20 05:09 05/07/20 19:40 Flush - Normal Saline IVF 10 ml PRN PRN Administration Saline Flush - Exam General Appearance: NAD, awake alert Eye: PERRL, anicteric sclera ENT: normocephalic atraumatic, no oropharyngeal lesions Neck: supple, symmetric, no JVD, no thyromegaly Heart: RRR, no murmur, no gallops, no rubs Respiratory: CTAB, no wheezes, no rales, no ronchi Gastrointestinal: soft, non-tender, non-distended, normal bowel sounds Extremities: no cyanosis, no clubbing, no edema Skin: normal turgor, no lesions, no rashes Neurological: cranial nerve grossly intact, normal sensation to touch, no new deficit Musculoskeletal: normal tone, normal strength, no muscle wasting Psychiatric: normal affect, normal behavior, A&O x 3 Hosp A/P - Plan CT brain: normal Chest X ray 05/08: no definite opacities seen within the lungs This is 49 year old male who presented with fevers, chills, weakness, tested positive for COVID COVID + - on ceftriaxone and azithromycin. Switched to oral cefdinir and azithromycin. He has completed five days of cefdinir and completed azithromycin - continue oral dexamethasone day 4/5 - blood and urine culture normal - pending [facility] bed at [facility] - I will repeat COVID swab today to see if he has cleared this #Dysarthria #Acute encephalopathy - possibly COVID related - no focal deficits. CT head normal. He continues to have mild impairment - rest of stroke workup not done since COVID positive - continue PT/OT/speech - UA 4-6 WBC, urine culture shows no growth Hypokalemia - potassium 3.4, replace potassium today Transaminitis - LFTs downtrending yesterday, will repeat tomorrow YOLANDA - resolved Dispo: pending [facility] bed at [facility]
[2020-05-10] MEDS: Acetaminophen 325 MG TAB PO PRN ×2 (13:12→21:40)
[2020-05-10] MEDS: Atorvastatin Calcium 40 MG TAB PO SCH (21:41)
[2020-05-11] MEDS: Acetaminophen 325 MG TAB PO PRN ×3 (05:35→20:00)
[2020-05-11] MEDS: Enoxaparin Sodium 30 MG/0.3 ML SYRINGE SC SCH (09:15)
[2020-05-11] MEDS: Dexamethasone 4 MG TAB PO SCH (09:16)
[2020-05-11] MEDS: Aspirin 81 mg Enteric Coated Tablet PO SCH (09:17)
[2020-05-11] MEDS: Amlodipine 5 MG TAB PO SCH (09:17)
[2020-05-11 14:42] LABS: SARS-CoV-2 MS2 Positive; SARS-CoV-2 N Gene Positive; SARS-CoV-2 S Gene Positive; SARS-CoV-2 orf1ab Positive
[2020-05-11 15:47] LABS: Mean Corpuscular HGB CONC 33.8 g/dL (32.0-36.0); Mean Corpuscular Hemoglobin 32.5 pg (27.0-31.0); Mean Platelet Volume 7.7 fL (7.4-10.4); Platelet Count 522 thou/uL (130-400); RBC Distribution Width 12.2 % (11.5-14.5); Red Blood Cell (RBC) Count 3.69 mill/uL (4.70-6.10); White Blood Cell (WBC) Count 13.2 thou/uL (4.8-10.8)
[2020-05-11 16:16] LABS: Anion Gap 16 mmol/L (10-20); BUN (Urea Nitrogen) 20 mg/dL (8.9-20.6); Calc. Creatinine Clearance 107 mL/min (70-130); Calcium 8.9 mg/dL (7.8-10.44); Carbon Dioxide 22 mmol/L (22-29); Chloride 99 mmol/L (98-107); Estimated GFR-MDRD 69; Glucose 128 mg/dL (70-105); Sodium 132 mmol/L (136-145)
--- NOTE | 2020-05-11 17:09 | PDOC.HOSPP ---
- Subjective Encounter Date: 05/11/20 Encounter Time: 11:00 Subjective: The patient is sitting up in bed. He has no complaints. He ambulates to the bathroom. He states he ate some fried food today Pending bed at [facility] - Objective Vital Signs & Weight: Vital Signs (12 hours) Temp Pulse Pulse Pulse Resp BP BP 05/11/20 12:33 99.5 F 89 32 H 05/11/20 11:06 94 114 H 142/76 H 130/90 05/11/20 09:30 99.3 F 83 24 H BP Pulse Ox 05/11/20 12:33 139/87 98 05/11/20 11:06 05/11/20 09:30 149/100 H 96 Weight Weight 212 lb 3.2 oz I&O: 05/10/20 05/11/20 05/12/20 06:59 06:59 06:59 Intake Total 1200 500 Output Total 550 650 Balance 650 -150 Result Diagrams: 05/11/20 15:24 05/11/20 15:24 Additional Labs: Accuchecks 05/11/20 12:48 POC Glucose 140 H Hospitalist ROS - Review of Systems Constitutional: denies: fever, chills - Medication Medications: Active Medications Generic Name Dose Route Start Last Admin Trade Name Freq PRN Reason Stop Dose Admin Acetaminophen 650 mg 05/05/20 05:09 05/11/20 12:33 Tylenol PO 650 mg Q4H PRN Administration Headache/Fever/Mild Pain (1-3) Amlodipine Besylate 5 mg 05/09/20 09:00 05/11/20 09:17 Norvasc PO 5 mg DAILY IWONA Administration Artificial Tears 2 drop 05/06/20 21:44 05/06/20 23:03 Liquitears 15ml Bottle EA EYE 2 drop Q4H PRN Administration Dry Eyes Aspirin 162 mg 05/05/20 09:00 05/11/20 09:17 Ecotrin PO 162 mg DAILY IWONA Administration Atorvastatin Calcium 40 mg 05/05/20 21:00 05/10/20 21:41 Lipitor PO 40 mg HS IWONA Administration Dexamethasone 6 mg 05/07/20 09:00 05/11/20 09:16 Decadron PO 6 mg DAILY IWONA Administration Enoxaparin Sodium 30 mg 05/05/20 09:00 05/11/20 09:15 Lovenox SC 30 mg 0900 IWONA Administration Guaifenesin/Dextromethorphan 15 ml 05/05/20 05:09 05/09/20 20:33 Robitussin Dm PO 15 ml Q4H PRN Administration Cough Hydralazine HCl 10 mg 05/07/20 22:52 05/09/20 20:31 Apresoline SLOW IVP 10 mg Q4H PRN Administration SBP > 180 or DBP > 105 Sodium Chloride 10 ml 05/05/20 05:09 05/11/20 09:16 Flush - Normal Saline IVF 10 ml PRN PRN Administration Saline Flush - Exam General Appearance: NAD, awake alert Eye: PERRL, anicteric sclera ENT: normocephalic atraumatic, no oropharyngeal lesions Neck: no JVD Heart: RRR, no murmur, no gallops, no rubs Respiratory: CTAB, no wheezes, no rales, no ronchi Gastrointestinal: soft, non-tender, non-distended, normal bowel sounds Extremities: no cyanosis, no clubbing, no edema Skin: normal turgor, no lesions, no rashes Neurological: cranial nerve grossly intact, normal sensation to touch, no focal deficits, no new deficit Psychiatric - other findings: laughs inappropriately out of context Hosp A/P - Plan CT brain: normal Chest X ray 05/08: no definite opacities seen within the lungs This is 49 year old male who presented with fevers, chills, weakness, tested positive for COVID COVID + - on ceftriaxone and azithromycin. Switched to oral cefdinir and azithromycin. He has completed five days of cefdinir and completed azithromycin - on dexamethasone day 55, d/c today - blood and urine culture normal - pending [facility] bed at [facility] - repeat COVID swab positive still #Dysarthria #Acute encephalopathy - possibly COVID related - no focal deficits. CT head normal. He continues to have inappropriate affect - rest of stroke workup not done since COVID positive - continue PT/OT/speech - UA 4-6 WBC, urine culture shows no growth Hyponatremia - sodium 132, encourage oral intake Hypokalemia- resolved Transaminitis - LFTs downtrending, will repeat tomorrow YOLANDA - resolved Dispo: pending [facility] bed at [facility]
[2020-05-11] MEDS: Atorvastatin Calcium 40 MG TAB PO SCH (20:00)
[2020-05-12 05:00] LABS: Hemoglobin 11.7 g/dL (14.0-18.0); Mean Corpuscular HGB CONC 32.6 g/dL (32.0-36.0); Mean Corpuscular Hemoglobin 31.6 pg (27.0-31.0); Mean Corpuscular Volume 96.8 fL (78.0-98.0); Mean Platelet Volume 7.2 fL (7.4-10.4); Platelet Count 594 thou/uL (130-400); RBC Distribution Width 12.1 % (11.5-14.5); Red Blood Cell (RBC) Count 3.71 mill/uL (4.70-6.10); White Blood Cell (WBC) Count 13.2 thou/uL (4.8-10.8)
[2020-05-12 05:22] LABS: ALT (SGPT) 96 U/L (8-55); AST (SGOT) 74 U/L (5-34); Albumin 3.4 g/dL (3.5-5.0); Alkaline Phosphatase 54 U/L (40-110); Anion Gap 13 mmol/L (10-20); BUN (Urea Nitrogen) 23 mg/dL (8.9-20.6); Bilirubin, Total 1.3 mg/dL (0.2-1.2); Calc. Creatinine Clearance 101 mL/min (70-130); Calcium 8.8 mg/dL (7.8-10.44); Carbon Dioxide 27 mmol/L (22-29); Chloride 97 mmol/L (98-107); Estimated GFR-MDRD 65; Globulin 3.7 g/dL (2.4-3.5); Glucose 136 mg/dL (70-105); Potassium 3.8 mmol/L (3.5-5.1); Protein, Total 7.1 g/dL (6.0-8.3); Sodium 133 mmol/L (136-145)
[2020-05-12] MEDS: Aspirin 81 mg Enteric Coated Tablet PO SCH (07:22)
[2020-05-12] MEDS: Amlodipine 5 MG TAB PO SCH (07:22)
[2020-05-12] MEDS: Enoxaparin Sodium 30 MG/0.3 ML SYRINGE SC SCH (07:23)
--- NOTE | 2020-05-12 17:12 | PDOC.HOSPP ---
- Subjective Encounter Date: 05/12/20 Encounter Time: 13:00 Subjective: The patient has no complaints. He is sitting up in bed. No significant cough or chest pain. He is more talkative today. He ate breakfast this morning He is not aware of the date unless he looks at the calendar. HE does not know what city he is in - Objective Vital Signs & Weight: Vital Signs (12 hours) Temp Pulse Resp BP BP Pulse Ox 05/12/20 15:30 99.2 F 82 22 H 126/86 92 L 05/12/20 11:15 98.7 F 82 24 H 124/88 93 L 05/12/20 07:53 99 F 100 20 123/85 93 L Weight Weight 212 lb 3.2 oz I&O: 05/11/20 05/12/20 05/13/20 06:59 06:59 06:59 Intake Total 500 900 480 Output Total 650 800 600 Balance -150 100 -120 Result Diagrams: 05/12/20 04:46 05/12/20 04:46 Hospitalist ROS - Review of Systems Constitutional: denies: fever, chills - Medication Medications: Active Medications Generic Name Dose Route Start Last Admin Trade Name Freq PRN Reason Stop Dose Admin Acetaminophen 650 mg 05/05/20 05:09 05/11/20 20:00 Tylenol PO 650 mg Q4H PRN Administration Headache/Fever/Mild Pain (1-3) Amlodipine Besylate 5 mg 05/09/20 09:00 05/12/20 07:22 Norvasc PO 5 mg DAILY IWONA Administration Artificial Tears 2 drop 05/06/20 21:44 05/06/20 23:03 Liquitears 15ml Bottle EA EYE 2 drop Q4H PRN Administration Dry Eyes Aspirin 162 mg 05/05/20 09:00 05/12/20 07:22 Ecotrin PO 162 mg DAILY IWONA Administration Atorvastatin Calcium 40 mg 05/05/20 21:00 05/11/20 20:00 Lipitor PO 40 mg HS IWONA Administration Enoxaparin Sodium 30 mg 05/05/20 09:00 05/12/20 07:23 Lovenox SC 30 mg 0900 IWONA Administration Guaifenesin/Dextromethorphan 15 ml 05/05/20 05:09 05/09/20 20:33 Robitussin Dm PO 15 ml Q4H PRN Administration Cough Hydralazine HCl 10 mg 05/07/20 22:52 05/09/20 20:31 Apresoline SLOW IVP 10 mg Q4H PRN Administration SBP > 180 or DBP > 105 Sodium Chloride 10 ml 05/05/20 05:09 05/12/20 07:23 Flush - Normal Saline IVF 10 ml PRN PRN Administration Saline Flush - Exam General Appearance: NAD, awake alert Eye: PERRL, anicteric sclera ENT: normocephalic atraumatic, no oropharyngeal lesions Neck: no JVD Heart: RRR, no murmur, no gallops, no rubs Respiratory: CTAB, no wheezes, no rales, no ronchi, rales Gastrointestinal: soft, non-tender, non-distended, normal bowel sounds, no hepatomegaly Extremities: no cyanosis, no clubbing, no edema Skin: normal turgor, no lesions, no rashes Neurological: cranial nerve grossly intact, normal sensation to touch, no focal deficits, no new deficit Musculoskeletal: normal tone, normal strength, no muscle wasting Psychiatric: normal affect, normal behavior, oriented to person Psychiatric - other findings: smiles at odd times and laughs inappropriately Hosp A/P - Plan CT brain: normal Chest X ray 05/08: no definite opacities seen within the lungs This is 49 year old male who presented with fevers, chills, weakness, tested positive for COVID COVID + - on ceftriaxone and azithromycin. He is on room air. Completed course of antibiotics with cef/azithro - s/p 5 days of dexamethasone - blood and urine culture normal - repeat COVID swab positive 05/10 still -- pending [facility] bed at [facility] #Dysarthria #Acute encephalopathy - possibly COVID related - no focal deficits. CT head normal. He continues to have inappropriate affect - rest of stroke workup not done since COVID positive - continue PT/OT/speech - UA 4-6 WBC, urine culture shows no growth Hyponatremia - sodium up to 133 Transaminitis - LFTs downtrending, AST 74, ALT 96 YOLANDA - resolved Hypokalemia- resolved Dispo: pending [facility] bed at [facility]
[2020-05-12] MEDS: Atorvastatin Calcium 40 MG TAB PO SCH (20:20)
[2020-05-13] MEDS: Acetaminophen 325 MG TAB PO PRN ×2 (00:35→17:41)
[2020-05-13 05:44] LABS: Hemoglobin 11.3 g/dL (14.0-18.0); Mean Corpuscular HGB CONC 32.4 g/dL (32.0-36.0); Mean Corpuscular Hemoglobin 31.2 pg (27.0-31.0); Mean Corpuscular Volume 96.4 fL (78.0-98.0); Mean Platelet Volume 7.2 fL (7.4-10.4); Platelet Count 548 thou/uL (130-400); RBC Distribution Width 12.2 % (11.5-14.5); Red Blood Cell (RBC) Count 3.61 mill/uL (4.70-6.10); White Blood Cell (WBC) Count 10.2 thou/uL (4.8-10.8)
[2020-05-13 06:06] LABS: Anion Gap 13 mmol/L (10-20); BUN (Urea Nitrogen) 19 mg/dL (8.9-20.6); Calc. Creatinine Clearance 112 mL/min (70-130); Calcium 8.8 mg/dL (7.8-10.44); Carbon Dioxide 26 mmol/L (22-29); Chloride 100 mmol/L (98-107); Estimated GFR-MDRD 73; Glucose 100 mg/dL (70-105); Potassium 3.8 mmol/L (3.5-5.1); Sodium 135 mmol/L (136-145)
[2020-05-13] MEDS: Amlodipine 5 MG TAB PO SCH (07:57)
[2020-05-13] MEDS: Enoxaparin Sodium 30 MG/0.3 ML SYRINGE SC SCH (07:57)
[2020-05-13] MEDS: Aspirin 81 mg Enteric Coated Tablet PO SCH (07:57)
--- NOTE | 2020-05-13 14:21 | PDOC.HOSPP ---
- Subjective Encounter Date: 05/13/20 Subjective: No new complaints. - Objective Vital Signs & Weight: Vital Signs (12 hours) Temp Pulse Resp BP BP Pulse Ox 05/13/20 11:08 98.5 F 94 20 137/86 100 05/13/20 08:25 998 H 05/13/20 08:17 98.7 F 101 H 22 H 133/82 98 05/13/20 05:00 94 L 05/13/20 03:46 98.8 F 80 28 H 131/86 90 L Weight Weight 212 lb 3.2 oz I&O: 05/12/20 05/13/20 05/14/20 06:59 06:59 06:59 Intake Total 900 920 480 Output Total 800 1300 300 Balance 100 -380 180 Result Diagrams: 05/13/20 05:13 05/13/20 05:13 Hospitalist ROS - Medication Medications: Active Medications Generic Name Dose Route Start Last Admin Trade Name Freq PRN Reason Stop Dose Admin Acetaminophen 650 mg 05/05/20 05:09 05/13/20 00:35 Tylenol PO 650 mg Q4H PRN Administration Headache/Fever/Mild Pain (1-3) Amlodipine Besylate 5 mg 05/09/20 09:00 05/13/20 07:57 Norvasc PO 5 mg DAILY IWONA Administration Artificial Tears 2 drop 05/06/20 21:44 05/06/20 23:03 Liquitears 15ml Bottle EA EYE 2 drop Q4H PRN Administration Dry Eyes Aspirin 162 mg 05/05/20 09:00 05/13/20 07:57 Ecotrin PO 162 mg DAILY IWONA Administration Atorvastatin Calcium 40 mg 05/05/20 21:00 05/12/20 20:20 Lipitor PO 40 mg HS IWONA Administration Enoxaparin Sodium 30 mg 05/05/20 09:00 05/13/20 07:57 Lovenox SC 30 mg 0900 IWONA Administration Guaifenesin/Dextromethorphan 15 ml 05/05/20 05:09 05/09/20 20:33 Robitussin Dm PO 15 ml Q4H PRN Administration Cough Hydralazine HCl 10 mg 05/07/20 22:52 05/09/20 20:31 Apresoline SLOW IVP 10 mg Q4H PRN Administration SBP > 180 or DBP > 105 Sodium Chloride 10 ml 05/05/20 05:09 07/11/20 07:58 Flush - Normal Saline IVF 10 ml PRN PRN Administration Saline Flush - Exam General Appearance: awake alert ENT: normocephalic atraumatic Neck: supple Heart: RRR Respiratory: normal chest expansion, no tachypnea Gastrointestinal: soft Neurological: cranial nerve grossly intact, no focal deficits Hosp A/P - Plan COVID + -The patient is saturating well on room air. He is clinically [facility] #Dysarthria #Acute encephalopathy - possibly COVID related - no focal deficits. CT head normal. He continues to have inappropriate affect - rest of stroke workup not done since COVID positive - continue PT/OT/speech - UA 4-6 WBC, urine culture shows no growth Hyponatremia - sodium up to 133 Transaminitis - LFTs downtrending, AST 74, ALT 96 YOLANDA - resolved Hypokalemia- resolved
[2020-05-13] MEDS: Artificial Tear Sol 15 ML BOT EA EYE PRN (15:28)
[2020-05-13] MEDS: Atorvastatin Calcium 40 MG TAB PO SCH (19:46)
[2020-05-14] MEDS: Acetaminophen 325 MG TAB PO PRN ×3 (00:44→23:42)
[2020-05-14] MEDS: Artificial Tear Sol 15 ML BOT EA EYE PRN (00:50)
[2020-05-14] MEDS: Aspirin 81 mg Enteric Coated Tablet PO SCH (08:39)
[2020-05-14] MEDS: Amlodipine 5 MG TAB PO SCH (08:39)
[2020-05-14] MEDS: Enoxaparin Sodium 30 MG/0.3 ML SYRINGE SC SCH (08:39)
--- NOTE | 2020-05-14 10:43 | PDOC.HOSPP ---
- Subjective Encounter Date: 05/14/20 Subjective: The patient is resting comfortably. He denies any complaints today. - Objective Vital Signs & Weight: Vital Signs (12 hours) Temp Pulse Resp BP BP Pulse Ox 05/14/20 08:39 100.7 F H 106 H 20 130/86 96 05/14/20 04:00 99.3 F 87 16 128/86 97 05/13/20 23:58 100.3 F H 96 18 151/104 H 96 Weight Weight 212 lb 3.2 oz I&O: 05/13/20 05/14/20 05/15/20 06:59 06:59 06:59 Intake Total 920 1020 200 Output Total 1300 700 200 Balance -380 320 0 Result Diagrams: 05/13/20 05:13 05/13/20 05:13 Hospitalist ROS - Medication Medications: Active Medications Generic Name Dose Route Start Last Admin Trade Name Freq PRN Reason Stop Dose Admin Acetaminophen 650 mg 05/05/20 05:09 05/14/20 00:44 Tylenol PO 650 mg Q4H PRN Administration Headache/Fever/Mild Pain (1-3) Amlodipine Besylate 5 mg 05/09/20 09:00 05/14/20 08:39 Norvasc PO 5 mg DAILY IWONA Administration Artificial Tears 2 drop 05/06/20 21:44 05/14/20 00:50 Liquitears 15ml Bottle EA EYE 2 drop Q4H PRN Administration Dry Eyes Aspirin 162 mg 05/05/20 09:00 05/14/20 08:39 Ecotrin PO 162 mg DAILY IWONA Administration Atorvastatin Calcium 40 mg 05/05/20 21:00 05/13/20 19:46 Lipitor PO 40 mg HS IWONA Administration Enoxaparin Sodium 30 mg 05/05/20 09:00 05/14/20 08:39 Lovenox SC 30 mg 0900 IWONA Administration Guaifenesin/Dextromethorphan 15 ml 05/05/20 05:09 05/09/20 20:33 Robitussin Dm PO 15 ml Q4H PRN Administration Cough Hydralazine HCl 10 mg 05/07/20 22:52 05/09/20 20:31 Apresoline SLOW IVP 10 mg Q4H PRN Administration SBP > 180 or DBP > 105 Sodium Chloride 10 ml 05/05/20 05:09 05/13/20 07:58 Flush - Normal Saline IVF 10 ml PRN PRN Administration Saline Flush - Exam General Appearance: awake alert ENT: normocephalic atraumatic Heart: RRR Respiratory: normal chest expansion, no tachypnea Neurological: cranial nerve grossly intact, no focal deficits Hosp A/P - Plan COVID + -The patient is saturating well on room air. He is clinically stable for discharge once an [facility] bed [facility] available. #Dysarthria #Acute encephalopathy - possibly COVID related - no focal deficits. CT head normal. He continues to have inappropriate affect - rest of stroke workup not done since COVID positive - continue PT/OT/speech - UA 4-6 WBC, urine culture shows no growth Hyponatremia - sodium up to 133 Transaminitis - LFTs downtrending, AST 74, ALT 96 YOLANDA - resolved Hypokalemia- resolved
[2020-05-14] MEDS ORDERED: Metoprolol Tartrate 25 MG TAB PO SCH (11:30)
[2020-05-14] MEDS: Atorvastatin Calcium 40 MG TAB PO SCH (20:01)
[2020-05-14] MEDS: Metoprolol Tartrate 25 MG TAB PO SCH (20:01)
[2020-05-15] MEDS: Acetaminophen 325 MG TAB PO PRN (09:20)
[2020-05-15] MEDS: Aspirin 81 mg Enteric Coated Tablet PO SCH (09:20)
[2020-05-15] MEDS: Metoprolol Tartrate 25 MG TAB PO SCH ×2 (09:21→20:05)
[2020-05-15] MEDS: Enoxaparin Sodium 30 MG/0.3 ML SYRINGE SC SCH (09:22)
[2020-05-15] MEDS: Amlodipine 5 MG TAB PO SCH (09:22)
--- NOTE | 2020-05-15 15:30 | PDOC.HOSPP ---
- Subjective Encounter Date: 05/15/20 Subjective: No new complaints - Objective Vital Signs & Weight: Vital Signs (12 hours) Temp Pulse Resp BP Pulse Ox 05/15/20 12:50 98.8 F 86 16 112/77 94 L 05/15/20 09:30 100.8 F H 95 16 145/81 H 92 L Weight Admit Weight 212 lb 3.2 oz Weight 212 lb 3.2 oz I&O: 05/14/20 05/15/20 05/16/20 06:59 06:59 06:59 Intake Total 1020 1430 Output Total 700 1850 Balance 320 -420 Result Diagrams: 05/13/20 05:13 05/13/20 05:13 Hospitalist ROS - Medication Medications: Active Medications Generic Name Dose Route Start Last Admin Trade Name Freq PRN Reason Stop Dose Admin Acetaminophen 650 mg 05/05/20 05:09 05/15/20 09:20 Tylenol PO 650 mg Q4H PRN Administration Headache/Fever/Mild Pain (1-3) Amlodipine Besylate 5 mg 05/09/20 09:00 05/15/20 09:22 Norvasc PO 5 mg DAILY IWONA Administration Artificial Tears 2 drop 05/06/20 21:44 05/14/20 00:50 Liquitears 15ml Bottle EA EYE 2 drop Q4H PRN Administration Dry Eyes Aspirin 162 mg 05/05/20 09:00 05/15/20 09:20 Ecotrin PO 162 mg DAILY IWONA Administration Atorvastatin Calcium 40 mg 05/05/20 21:00 05/14/20 20:01 Lipitor PO 40 mg HS IWONA Administration Enoxaparin Sodium 30 mg 05/05/20 09:00 05/15/20 09:22 Lovenox SC 30 mg 0900 IWONA Administration Guaifenesin/Dextromethorphan 15 ml 05/05/20 05:09 05/09/20 20:33 Robitussin Dm PO 15 ml Q4H PRN Administration Cough Hydralazine HCl 10 mg 05/07/20 22:52 05/09/20 20:31 Apresoline SLOW IVP 10 mg Q4H PRN Administration SBP > 180 or DBP > 105 Metoprolol Tartrate 12.5 mg 05/14/20 21:00 05/15/20 09:21 Lopressor PO 12.5 mg BID IWONA Administration Sodium Chloride 10 ml 05/05/20 05:09 05/13/20 07:58 Flush - Normal Saline IVF 10 ml PRN PRN Administration Saline Flush - Exam General Appearance: awake alert ENT: normocephalic atraumatic Neck: supple, no JVD Heart: RRR Respiratory: normal chest expansion, no tachypnea Extremities: no cyanosis Neurological: cranial nerve grossly intact Hosp A/P - Plan COVID + -The patient is saturating well on room air. He is clinically stable for [facility]. #Dysarthria #Acute encephalopathy - possibly COVID related - no focal deficits. CT head normal. He continues to have inappropriate affect - rest of stroke workup not done since COVID positive - continue PT/OT/speech - UA 4-6 WBC, urine culture shows no growth Hyponatremia - sodium up to 133 Transaminitis - LFTs downtrending, AST 74, ALT 96 YOLANDA - resolved Hypokalemia- resolved
[2020-05-15] MEDS: Atorvastatin Calcium 40 MG TAB PO SCH (20:05)
[2020-05-15 20:40] VITALS: BP 124/77; TEMP 99.2
== END 2020-05-15 22:21 | disposition short-term general hospital (02) | DRG 871 ==
LOC: 2SW 03:16
PROVIDERS: ADMIT Internal Medicine; ATTEND Internal Medicine
PROC: 8E0ZXY6 Isolation (ICD-10-PCS; principal; 2020-05-05)
DX: A41.89 Other specified sepsis (principal); U07.1 COVID-19; J12.89 Other viral pneumonia; N17.9 Acute kidney failure, unspecified; E87.1 Hypo-osmolality and hyponatremia; G93.49 Other encephalopathy; R65.20 Severe sepsis without septic shock; I10 Essential (primary) hypertension; R74.0 Nonspecific elevation of levels of transaminase and lactic acid dehydrogenase [LDH]; E86.1 Hypovolemia; E87.6 Hypokalemia; Z87.891 Personal history of nicotine dependence; Z79.899 Other long term (current) drug therapy
CPT/HCPCS: 36415; 36416; 70450; 71045; 80048; 80053; 80061; 80076; 81001; 83036; 85007; 85027; 87040; 87086; 87635; J0360; J0456; J0696; J1100; J1650; J3490; J7050; J8540; U0003